=== PATIENT | female | born 1950 | race Caucasian/White ===

== ENCOUNTER 2017-01-04 20:29 | Observation (INO) | payer MEDICARE, OTHER ==
[2017-01-04 20:33] VITALS: BMI 21.4
[2017-01-04 20:56] LABS: MEAN CELL VOLUME 88.5 fl (80.0-105.0); MEAN CORPUSCULAR HEMOGLOBIN 28.5 pg (25.0-35.0); MEAN CORPUSCULAR HGB CONC 32.3 g/dl (31.0-37.0); MEAN PLATELET VOLUME 10.6 fl (7.0-11.0); RED CELL DISTRIBUTION WIDTH 13.9 % (11.5-14.5)
[2017-01-04 21:07] LABS: ALB/GLOB RATIO 1.4 (1.1-1.8); ALKALINE PHOSPHATASE 67 U/L (38-126); ALT/SGPT 30 U/L (7-56); AST/SGOT 27 U/L (14-36); BILIRUBIN,TOTAL 0.5 mg/dL (0.2-1.3); BLOOD UREA NITROGEN 23 mg/dL (7-21); CALCIUM 9.5 mg/dL (8.4-10.5); CARBON DIOXIDE 29 mmol/L (21-33); CHLORIDE 104 mmol/L (98-107); GFR AFRICAN-AMERICAN > 60; GLUCOSE,RANDOM 109 mg/dL (70-110); POTASSIUM 4.1 mmol/L (3.6-5.0); SODIUM 141 mmol/L (132-148); TOTAL PROTEIN 7.6 g/dL (5.8-8.3)
[2017-01-04 21:08] LABS: INR 1.06 (0.93-1.08)
[2017-01-04] MEDS ORDERED: Nitroglycerin 2% Ointment Foilpak UD TOP STA (21:09)
--- NOTE | 2017-01-04 21:11 | ED PDOC ---
Arrival/HPI - General Chief Complaint: Chest Pain Time Seen by Provider: 01/04/17 20:29 Historian: Patient - History of Present Illness Narrative History of Present Illness (Text): 01/04/17 20:45 Aubrie Mcghee is a 66 year old female, whose past medical history includes hypertension on Losartan/Amlodipine, who presents to the ED complaining of chest discomfort. Patient states chest discomfort has been intermittent over the past 3 days. Patient denies shortness of breath, fever, chills, cough, recent trauma/injury, or any other complaints. Patient notes some discomfort with certain movements, although patient is not quite sure. Time/Duration: < week (3 days) Symptom Onset: Gradual Symptom Course: Unchanged Activities at Onset: Light Context: Home Past Medical History - Provider Review Nursing Documentation Reviewed: Yes - Infectious Disease Hx of Infectious Diseases: None - Tetanus Immunization Tetanus Immunization: Unknown - Cardiac Hx Hypertension: Yes - Musculoskeletal/Rheumatological Hx Back Pain: Yes Hx Osteoporosis: Yes - Psychiatric Hx Psychophysiologic Disorder: No Hx Depression: No Hx Emotional Abuse: No Hx Physical Abuse: No Hx Substance Use: No - Surgical History Hx Cholecystectomy: Yes Hx Orthopedic Surgery: Yes (left knee) - Suicidal Assessment Feels Threatened In Home Enviroment: No Family/Social History - Physician Review Nursing Documentation Reviewed: Yes Family/Social History: Unknown Family HX Smoking Status: Never Smoked Hx Alcohol Use: No Hx Substance Use: No Hx Substance Use Treatment: No Allergies/Home Meds Allergies/Adverse Reactions: Allergies No Known Allergies Allergy (Verified 01/04/17 20:33) Home Medications: Home Meds Medication Instructions Recorded Confirmed Alendronate [Fosamax] 70 mg PO TUE 01/04/17 01/04/17 Losartan [Cozaar] 50 mg PO DAILY 01/04/17 01/04/17 amLODIPine [Norvasc] 5 mg PO DAILY 01/04/17 01/04/17 Review of Systems - Physician Review All systems were reviewed & negative as marked: Yes - Review of Systems Constitutional: Normal. absent: Fevers Eyes: Normal ENT: Normal Respiratory: Normal. absent: SOB, Cough Cardiovascular: Chest Pain Gastrointestinal: Normal. absent: Abdominal Pain, Diarrhea, Nausea Genitourinary Female: Normal. absent: Dysuria, Frequency, Hematuria, Urine Output Changes Musculoskeletal: Normal. absent: Back Pain, Neck Pain Skin: Normal. absent: Rash Neurological: Normal. absent: Headache, Dizziness Endocrine: Normal Hemo/Lymphatic: Normal Psychiatric: Normal Physical Exam Vital Signs Reviewed: Yes Vital Signs Temp Pulse Pulse Resp BP BP Pulse Ox 01/04/17 22:59 52 L 16 134/79 97 01/04/17 21:20 51 L 14 126/75 99 01/04/17 20:30 55 L 172/69 H 01/04/17 20:29 97.8 F 55 L 17 172/69 H 99 Temperature: Afebrile Blood Pressure: Hypertensive Pulse: Regular Respiratory Rate: Normal Appearance: Positive for: Well-Appearing, Non-Toxic, Comfortable Pain Distress: None Mental Status: Positive for: Alert and Oriented X 3 - Systems Exam Head: Present: Atraumatic, Normocephalic Pupils: Present: PERRL Extroacular Muscles: Present: EOMI Conjunctiva: Present: Normal Mouth: Present: Moist Mucous Membranes Neck: Present: Normal Range of Motion Respiratory/Chest: Present: Clear to Auscultation, Good Air Exchange. No: Respiratory Distress, Accessory Muscle Use Cardiovascular: Present: Regular Rate and Rhythm, Normal S1, S2. No: Murmurs Abdomen: Present: Normal Bowel Sounds. No: Tenderness, Distention, Peritoneal Signs Back: Present: Normal Inspection Upper Extremity: Present: Normal Inspection. No: Cyanosis, Edema Lower Extremity: Present: Normal Inspection. No: Edema Neurological: Present: GCS=15, CN II-XII Intact, Speech Normal Skin: Present: Warm, Dry, Normal Color. No: Rashes Psychiatric: Present: Alert, Oriented x 3, Normal Insight, Normal Concentration Medical Decision Making ED Course and Treatment: 01/04/17 20:45 Impression: 66 year old female complaining of chest discomfort. Plan: -- EKG -- CXR -- Labs, cardiac enzymes -- Aspirin -- Nitrolgycerin -- Reassess and disposition Prior Visits: Notes and results from previous visits were reviewed. Progress Notes: Reviewed EKG, sinus bradycardia at 52 bpm. T wave changes inferiorly. Unchanged from previous EKG. 01/04/17 22:56 Chest X-ray reviewed, no acute processes. 01/04/17 23:[address] Harper, who is aware and agrees with plan. Accepts pt in to his service. Pt will go to Telemetry observation for chest pain. Requests Dr. Harper on consult. 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 - Lab Interpretations Lab Results: 01/04/17 20:45 01/04/17 20:45 Lab Results 01/04/17 20:45: Sodium 141, Potassium 4.1, Chloride 104, Carbon Dioxide 29, Anion Gap 12, BUN 23 H, Creatinine 0.7, Est GFR ( Amer) > 60, Est GFR ( Non-Af Amer) > 60, Random Glucose 109, Calcium 9.5, Total Bilirubin 0.5, AST 27 , ALT 30, Alkaline Phosphatase 67, Lactate Dehydrogenase 353, Total Creatine Kinase 42, Troponin I < 0.01, Total Protein 7.6, Albumin 4.4, Globulin 3.2, Albumin/Globulin Ratio 1.4 01/04/17 20:45: WBC 6.0, RBC 4.52, Hgb 12.9, Hct 40.0, MCV 88.5, MCH 28.5, MCHC 32.3, RDW 13.9, Plt Count 269, MPV 10.6 01/04/17 20:45: PT 11.6, INR 1.06, APTT 29.0 I have reviewed the lab results: Yes - RAD Interpretation Radiology Orders: 01/04/17 20:44 CHEST PORTABLE [RAD] Stat Communications Equipment Supervisor: ED Physician - EKG Interpretation Interpreted by ED Physician: Yes Type: 12 lead EKG - Medication Orders Current Medication Orders: Discontinued Medications Aspirin (Aspirin) 325 mg PO ONCE STA Stop: 01/04/17 21:17 Last Admin: 01/04/17 21:24 Dose: 325 mg - Scribe Statement The provider has reviewed the documentation as recorded by the Peeweeibnat March All medical record entries made by the Courtney were at my direction and personally dictated by me. I have reviewed the chart and agree that the record accurately reflects my personal performance of the history, physical exam, medical decision making, and the department course for this patient. I have also personally directed, reviewed, and agree with the discharge instructions and disposition. Disposition/Present on Arrival - Present on Arrival Any Indicators Present on Arrival: No History of DVT/PE: No History of Uncontrolled Diabetes: No Urinary Catheter: No History of Decub. Ulcer: No History Surgical Site Infection Following: None - Disposition Have Diagnosis and Disposition been Completed?: Yes Diagnosis: Chest pain Disposition: HOSPITALIZED Disposition Time: 23:20 Patient Plan: Observation Condition: STABLE Discharge Instructions (ExitCare): Chest Pain (ED) Referrals: Sarah Santoro, [Primary Care Provider] - Follow up with primary Forms: [employer] (Uzbek)
[2017-01-04 21:18] LABS: TROPONIN I < 0.01 ng/mL
--- NOTE | 2017-01-05 00:40 | CP.PCM.HP ---
History of Present Illness - History of Present Illness History of Present Illness: Houston Lopez DO PGY1 - Internal Medicine H&P for Dr. Harper CC: Chest pain HPI: 66 yo F with PMH of HTN and prediabetes presents complaining of chest pain. Pain is in the left side of her chest, started about one week ago as a sharp pinching pain then became dull constant ache, radiating to back and shoulder, worse with deep inspiration, no particular remitting factors, started after a day of yardwork and cooking, worst was 8/10 in severity. She has never had this pain before. She denies SOB, dyspnea on exertion, diaphoresis cough, leg pain with activity. She also denies recent weight loss, night sweats, nausea , vomiting, diarrhea, constipation, fever, chills. She came to the hospital because she was worried about the pain because a relative recently from an [place] after experiencing back pain for several days. Since arriving to the ER, her pain has improved dramatically after receiving just Aspirin 325mg. Of note, patient had nuclear stress test in 2013 which was normal with no wall motion abnormalities, with an LVEF 61%. She also had an echocardiogram done with showed good LV function, mildly dilated RA and RV with mild TR, and no pHTN. 12 point ROS was obtained and is negative except as above PMH: HTN, prediabetes Home meds: Losartan 50 daily, Amlodipine 5 daily, alendronate weekly PSH: Cholecystectomy Soc: Denies tobacco, alcohol, or illicits FHx: Mother with angina; Father had DM; Multiple maternal aunts and uncles with TN's and strokes All: NKDA PMD: Dr. Jo Present on Admission - Present on Admission Any Indicators Present on Admission: No Past Patient History - Infectious Disease Hx of Infectious Diseases: None - Tetanus Immunizations Tetanus Immunization: Unknown - Past Social History Smoking Status: Never Smoked - CARDIAC Hx Hypertension: Yes - MUSCULOSKELETAL/RHEUMATOLOGICAL Hx Back Pain: Yes Hx Osteoporosis: Yes - PSYCHIATRIC Hx Psychophysiologic Disorder: No Hx Depression: No Hx Emotional Abuse: No Hx Physical Abuse: No Hx Substance Use: No - SURGICAL HISTORY Hx Cholecystectomy: Yes Hx Orthopedic Surgery: Yes (left knee) Meds Allergies/Adverse Reactions: Allergies Allergy/AdvReac Type Severity Reaction Status Date / Time No Known Allergies Allergy Verified 01/04/17 20:33 Physical Exam - Constitutional Appears: Non-toxic, No Acute Distress - Head Exam Head Exam: ATRAUMATIC, NORMOCEPHALIC - Eye Exam Eye Exam: EOMI, Normal appearance, PERRL. absent: Scleral icterus - ENT Exam ENT Exam: Mucous Membranes Moist - Neck Exam Neck exam: Positive for: Normal Inspection. Negative for: Lymphadenopathy - Respiratory Exam Respiratory Exam: Clear to Auscultation Bilateral, NORMAL BREATHING PATTERN. absent: Rales, Rhonchi, Wheezes - Cardiovascular Exam Cardiovascular Exam: Bradycardia, REGULAR RHYTHM, +S1, +S2. absent: Diastolic murmur, +S4, Systolic Murmur Additional comments: Anterior chest wall tenderness; reproduces the pain she is complaining of - GI/Abdominal Exam GI & Abdominal Exam: Normal Bowel Sounds, Soft. absent: Guarding, Rebound, Rigid, Tenderness - Extremities Exam Extremities exam: Positive for: normal capillary refill, pedal pulses present. Negative for: calf tenderness, pedal edema - Neurological Exam Neurological exam: Alert, CN II-XII Intact, Oriented x3 - Psychiatric Exam Psychiatric exam: Normal Affect, Normal Mood - Skin Skin Exam: Dry, Intact, Normal Color Results - Vital Signs Recent Vital Signs: Last Vital Signs Temp 97.8 F 01/04/17 20:29 Pulse 52 L 01/04/17 22:59 Resp 16 01/04/17 22:59 BP 134/79 01/04/17 22:59 Pulse Ox 97 01/04/17 22:59 - Labs Result Diagrams: 01/04/17 20:45 01/04/17 20:45 Assessment & Plan - Assessment and Plan (Free Text) Assessment: 66 yo F with PMH of HTN and prediabetes presents complaining of left chest pain radiating to back and shoulder; reproducible on exam Plan 1. Chest pain, rule out ACS - Chest pain reproducible on exam; more likely costochondritis 2/2 overuse while preparing for guests for holiday dinner; improved since initial presentation - Elderly female with nonanginal chest pain, intermediate risk for CAD according for Kathy Leonid classification; SHARDA 1 - EKG is unchanged from prior EKG in February 2016; patient had nuclear stress test and echocardiogram which were essentially normal in 2013 - First troponin negative; continue to trend - Ordered echo to rule out wall motion abnormalities - Repeat EKG in AM - Start ASA, Plavix, Statin - Start nitro paste - Acetaminophen for pain - Ordered D-Dimer to rule out PE as etiology of chest pain - Heart healthy diet - Cardiology consulted, appreciate recs 2. H/o HTN - Resume home lostartan 3. Baseline bradycardia - Avoid negative chronotropes, hold home amlodipine - Patient is asymptomatic currently, continue to monitor 4. H/o prediabetes - Patient is euglycemic currently - Ordered HbA1c to check glycemic control GI DVT Ppx - Protonix and Lovenox Patient discussed and reviewed with attending, Dr. Harper
[2017-01-05 01:19] LABS: CHOLESTEROL 156 mg/dL (130-200)
[2017-01-05] MEDS: Nitroglycerin 2% Ointment Foilpak UD TOP SCH ×3 (01:22→13:00)
[2017-01-05] MEDS: Enoxaparin 40 mg Syringe SC SCH ×2 (01:22→09:55)
[2017-01-05] MEDS: Pantoprazole 40 mg EC Tab PO SCH ×2 (01:23→05:57)
[2017-01-05 01:30] LABS: TROPONIN I < 0.01 ng/mL
--- NOTE | 2017-01-05 03:05 | HP ---
HISTORY OF PRESENT ILLNESS: The patient is a 66-year-old female who is being followed by primary care physician in [place], came to the emergency room complaining of chest pain despite taking aspirin. The patient came to the emergency room as a walk-in. The patient's pain scale was described over 09/15. The patient's 13-system review was positive for chest pain according to the ER physician evaluation. The patient complains of chest pain, chest pressure, and chest discomfort increasing for the last 3 days. Denies shortness of breath. Denies nausea, vomiting, diarrhea, or constipation. Denies hemoptysis. CODE STATUS: Full code. LIVING WILL ADVANCE DIRECTIVE: None. ALLERGIES: NONE. The patient is seen in a stretcher #6 in the main emergency room. Height is 5 feet 3 inches. Weight is 121. BMI is 21. HOME MEDICATIONS: 1. Fosamax 70 mg weekly. 2. Norvasc 5 mg daily. 3. Cozaar 50 mg daily. SOCIAL HISTORY: Substance history is negative for substance abuse. Negative for alcohol use. Negative for smoking. MENSTRUAL HISTORY: Postmenopausal. FAMILY HISTORY: Positive for hypertension. PAST MEDICAL AND SURGICAL HISTORY: History of hypertension; history of osteoporosis; history of dyslipidemia; history of cholecystectomy; history of left knee surgery; history of degenerative disk disease; history of syncope, etiology undetermined; history of hypertension; and history of cervical disk disease and cervical radiculopathy. The patient's past medical history is significant for history of stress test done by Dr. Sandoval showing ejection fraction of 61% and normal perfusion study, history of degenerative joint disease of the cervical spine, history of degenerative joint disease of the lumbar spine, history of left ventricular ejection fraction of 60% on the echocardiogram, history of mildly dilated right ventricle, history of thickened aortic valve, history of thickened mitral valve, history of thickened tricuspid valve, history of mild tricuspid regurgitation, history of mildly dilated right atrium and right ventricle, history of arthroscopic surgery of the knee, history of arthritis, history of degenerative joint disease, history of left knee arthroscopic surgery, history of osteoporosis, and history of lumbar disk disease. REVIEW OF SYSTEMS: The patient's 13 system review as dictated above. PHYSICAL EXAMINATION: VITAL SIGNS: T-max 97.8, heart rate 55, 51, and 52, blood pressure 172/69, 126/75, and 134/79, respirations 16 to 14, and O2 sat 97% to 99% in room air. The patient is seen and examined by the ER physician, Dr. Tenorio. HEENT: Head examination; normocephalic and atraumatic. HEENT examination shows pink conjunctivae. Anicteric sclerae. No nystagmus noted. Extraocular movements intact. Dry oral mucosa. GENERAL: The patient is seen in the stretcher #6. The patient is alert, awake, and oriented x3. NECK: No neck rigidity. No audible carotid bruit. CHEST: Symmetrical. LUNGS: Shows no rales, crackles, or wheezing. CARDIOVASCULAR: S1 and S2, regular rhythm. Questionable soft systolic murmur at the left second intercostal space. ABDOMEN: Soft. Positive bowel sounds. Nontender. No guarding. No rigidity. No rebound tenderness and no costovertebral angle tenderness. GENITALIA: Female. RECTAL: Deferred. EXTREMITIES: Shows no clubbing, no cyanosis, and no edema. No calf numbness. No Homans' sign. NEUROLOGIC: The patient is alert, awake, and oriented x3. Cranial nerves II-XII intact. Speech is intact. SKIN: Warm and dry. PSYCHIATRIC: Negative for anxiety or depression. Negative for suicidal or homicidal ideation. Negative for auditory or visual hallucination. DIAGNOSTIC DATA: EKG shows sinus bradycardia, T-wave changes in the inferior leads. Chest x-ray, no acute process. WBC 6.0, hemoglobin and hematocrit 12.9 and 40, and platelet 269. PT/PTT 11.6 and 29. Sodium 141, potassium 4.1, chloride 104, CO2 of 29, anion gap 12, BUN 23, and creatinine 0.7. GFR greater than 60, glucose 109, and calcium 9.5. LFTs are within normal limits. Troponin is 0.01. CPK 42. Chest x-ray shows clear lung tan. EKG shows sinus bradycardia, nonspecific ST changes. The patient was seen in the emergency room by Dr. Tenorio. The patient was advised to be admitted. IMPRESSION: 1. Chest pain. 2. Questionable unstable angina. 3. Sinus bradycardia. 4. Mild prerenal kidney injury. 5. History of hypertension. 6. History of osteoporosis. PLAN: At present, the patient will be admitted to telemetry. The patient has been ordered lipid panel. The patient has been ordered serial cardiac enzymes, serial troponin, D-dimer ordered, erythrocyte sedimentation rate ordered, and lipid panel ordered. Consultation with Cardiology. The patient is started on antiplatelet therapy with aspirin 325 daily. The patient is resumed on his Cozaar 50 mg daily, Ecotrin 81 mg daily, Fosamax 70 mg weekly, Lipitor 80 mg daily, Lovenox 40 mg subcutaneously daily, nitroglycerin paste 1 inch q.6 hours, Plavix 75 mg daily, Protonix 40 mg twice a day, and Tylenol 650 q.6 hours p.r.n. Repeat EKG ordered. Echo with Doppler ordered. Heart healthy diet ordered. Cardiology consultation ordered. At present, the patient's further management will be dependent upon the patient's clinical condition, hemodynamic status, and as per the patient response to therapeutic intervention as per the patient's diagnostic test results and recommendation by all the physician involved in the care of the patient. The patient was explained about the details of her medical condition for further diagnostic therapeutic intervention was explained to the patient at length. All questions concerned and answered. The patient was advised and need for further diagnostic therapeutic intervention, need for further treatment, need for further diagnostic therapeutic intervention was explained to the patient at length and all questions concerned answered, which he acknowledged and understand. Dictated and electronically signed, not read. Benjy Harper MD
[2017-01-05 05:53] LABS: BASO # 0.01 K/mm3 (0.0-2.0); BASO % 0.2 % (0.0-3.0); EOS # 0.2 (0.0-0.7); EOS % 3.5 % (1.5-5.0); GRAN # 2.76 (1.4-6.5); GRAN % 54.4 % (50.0-68.0); HEMATOCRIT 37.8 % (36.0-48.0); LYMPH # 1.8 (1.2-3.4); LYMPH % 34.4 % (22.0-35.0); MEAN CELL VOLUME 88.1 fl (80.0-105.0); MEAN CORPUSCULAR HEMOGLOBIN 28.2 pg (25.0-35.0); MEAN PLATELET VOLUME 10.5 fl (7.0-11.0); MONO # 0.4 (0.1-0.6); MONO % 7.5 % (1.0-6.0); WHITE BLOOD COUNT 5.1 10^3/ul (4.5-11.0)
[2017-01-05 06:14] VITALS: RESP 20
[2017-01-05 06:36] LABS: ALB/GLOB RATIO 1.2 (1.1-1.8); ALKALINE PHOSPHATASE 59 U/L (38-126); ALT/SGPT 33 U/L (7-56); AST/SGOT 32 U/L (14-36); BILIRUBIN,TOTAL 0.6 mg/dL (0.2-1.3); BLOOD UREA NITROGEN 19 mg/dL (7-21); CARBON DIOXIDE 29 mmol/L (21-33); CHLORIDE 108 mmol/L (98-107); GFR AFRICAN-AMERICAN > 60; GLUCOSE,RANDOM 99 mg/dL (70-110); MAGNESIUM 2.1 mg/dL (1.7-2.2); PHOSPHOROUS 3.4 mg/dL (2.5-4.5); POTASSIUM 3.7 mmol/L (3.6-5.0); SODIUM 143 mmol/L (132-148); TOTAL PROTEIN 6.8 g/dL (5.8-8.3)
[2017-01-05 06:46] LABS: TROPONIN I < 0.01 ng/mL
--- NOTE | 2017-01-05 08:15 | RAD ---
HISTORY: chest pain COMPARISON: 04/21/2014 FINDINGS: LUNGS: No active pulmonary disease. PLEURA: No significant pleural effusion identified, no pneumothorax apparent. CARDIOVASCULAR: Normal. OSSEOUS STRUCTURES: No significant abnormalities. VISUALIZED UPPER ABDOMEN: Normal. OTHER FINDINGS: None. IMPRESSION: No active disease.
[2017-01-05 09:44] LABS: TROPONIN I < 0.01 ng/mL
--- NOTE | 2017-01-05 10:31 | CARD ---
APPROVED REPORT EXAM: Two-dimensional and M-mode echocardiogram with Doppler and color Doppler. INDICATION Hypertension/HCVD Chest Pain 2D DIMENSIONS Left Atrium (2D)3.2 (1.6-4.0cm)IVSd1.0 (0.7-1.1cm) LVDd4.3 (3.9-5.9cm)PWd1.3 (0.7-1.1cm) LVDs2.8 (2.5-4.0cm)FS (%) 34.7 % LVEF (%)64.1 (>50%) M-Mode DIMENSIONS Aortic Root2.60 (2.2-3.7cm)Aortic Cusp Exc.1.70 (1.5-2.0cm) Aortic Valve AoV Peak Hujkmwli522.0cm/Jorden Peak GR.6mmHg Mitral Valve MV E Fbwrhchu78.5cm/sMV A Ckdwdxky04.1cm/sE/A ratio0.7 TDI E/Lateral E'0.0E/Medial E'0.0 Tricuspid Valve TR Peak Eryxhiit269xy/sRAP [id number] Peak Gr.21mmHg [id number] LEFT VENTRICLE The left ventricle is normal size. There is normal left ventricular wall thickness. The left ventricular function is normal. The left ventricular ejection fraction is within the normal range. There is normal LV segmental wall motion. Transmitral Doppler flow pattern is Grade I-abnormal relaxation pattern. RIGHT VENTRICLE The right ventricle is normal size. There is normal right ventricular wall thickness. The right ventricular systolic function is normal. ATRIA The left atrium size is normal. The right atrium size is normal. AORTIC VALVE The aortic valve is normal in structure. No aortic regurgitation is present. MITRAL VALVE The mitral valve is normal in structure. There is no mitral valve stenosis. TRICUSPID VALVE There is trace tricuspid regurgitation. PULMONIC VALVE There is trace pulmonic valvular regurgitation. GREAT VESSELS The aortic root is normal in size. The IVC is normal in size and collapses >50% with inspiration. PERICARDIAL EFFUSION There is no pericardial effusion. <Conclusion> The left ventricle is normal size. There is normal left ventricular wall thickness. The left ventricular function is normal. The left ventricular ejection fraction is within the normal range. There is normal LV segmental wall motion. Transmitral Doppler flow pattern is Grade I-abnormal relaxation pattern.
--- NOTE | 2017-01-05 10:33 | CARD ---
APPROVED REPORT EKG Measurement Heart [id number] <Conclusion> Sinus bradycardia Possible Left atrial enlargement Incomplete right bundle branch block T wave abnormality, consider inferior ischemia Abnormal ECG
--- NOTE | 2017-01-05 10:53 | CARD ---
APPROVED REPORT EKG Measurement Heart [id number] <Conclusion> Sinus bradycardia T wave abnormality, consider inferior ischemia Abnormal ECG
--- NOTE | 2017-01-05 11:54 | CP.PCM.DIS ---
Provider - Provider Date of Admission: 01/04/17 23:15 Attending physician: Benjy Harper MD Primary care physician: Dr. Flores [facility] Course - Lab Results Lab Results: Most Recent Lab Values WBC 5.1 10^3/ul (4.5-11.0) 01/05/17 05:20 RBC 4.29 10^6/uL (3.5-6.1) 01/05/17 05:20 Hgb 12.1 g/dL (12.0-16.0) 01/05/17 05:20 Hct 37.8 % (36.0-48.0) 01/05/17 05:20 MCV 88.1 fl (80.0-105.0) 01/05/17 05:20 MCH 28.2 pg (25.0-35.0) 01/05/17 05:20 MCHC 32.0 g/dl (31.0-37.0) 01/05/17 05:20 RDW 14.0 % (11.5-14.5) 01/05/17 05:20 Plt Count 246 10^3/uL (120.0-450.0) 01/05/17 05:20 MPV 10.5 fl (7.0-11.0) 01/05/17 05:20 Gran % 54.4 % (50.0-68.0) 01/05/17 05:20 Lymph % (Auto) 34.4 % (22.0-35.0) 01/05/17 05:20 [place] % (Auto) 7.5 % (1.0-6.0) H 01/05/17 05:20 Eos % (Auto) 3.5 % (1.5-5.0) 01/05/17 05:20 Baso % (Auto) 0.2 % (0.0-3.0) 01/05/17 05:20 Gran # 2.76 (1.4-6.5) 01/05/17 05:20 Lymph # 1.8 (1.2-3.4) 01/05/17 05:20 [place] # 0.4 (0.1-0.6) 01/05/17 05:20 Eos # 0.2 (0.0-0.7) 01/05/17 05:20 Baso # 0.01 K/mm3 (0.0-2.0) 01/05/17 05:20 ESR 10 mm/hr (0.0-20.0) 01/05/17 00:45 PT 11.6 SECONDS (9.4-12.5) 01/04/17 20:45 INR 1.06 (0.93-1.08) 01/04/17 20:45 APTT 29.0 Seconds (25.1-36.5) 01/04/17 20:45 D-Dimer, Quantitative < 200 ng/mL (0-243) 01/05/17 00:45 Sodium 143 mmol/L (132-148) 01/05/17 05:20 Potassium 3.7 mmol/L (3.6-5.0) 01/05/17 05:20 Chloride 108 mmol/L (98-107) H 01/05/17 05:20 Carbon Dioxide 29 mmol/L (21-33) 01/05/17 05:20 Anion Gap 9 (10-20) L 01/05/17 05:20 BUN 19 mg/dL (7-21) 01/05/17 05:20 Creatinine 0.7 mg/dl (0.7-1.2) 01/05/17 05:20 Est GFR ( Amer) > 60 01/05/17 05:20 Est GFR (Non-Af Amer) > 60 01/05/17 05:20 Random Glucose 99 mg/dL (70-110) 01/05/17 05:20 Calcium 9.0 mg/dL (8.4-10.5) 01/05/17 05:20 Phosphorus 3.4 mg/dL (2.5-4.5) 01/05/17 05:20 Magnesium 2.1 mg/dL (1.7-2.2) 01/05/17 05:20 Total Bilirubin 0.6 mg/dL (0.2-1.3) 01/05/17 05:20 AST 32 U/L (14-36) 01/05/17 05:20 ALT 33 U/L (7-56) 01/05/17 05:20 Alkaline Phosphatase 59 U/L (38-126) 01/05/17 05:20 Lactate Dehydrogenase 353 U/L (333-699) 01/04/17 20:45 Total Creatine Kinase 34 U/L (35-230) L 01/05/17 09:05 Troponin I < 0.01 ng/mL 01/05/17 09:05 Total Protein 6.8 g/dL (5.8-8.3) 01/05/17 05:20 Albumin 3.7 g/dL (3.0-4.8) 01/05/17 05:20 Globulin 3.1 gm/dL 01/05/17 05:20 Albumin/Globulin Ratio 1.2 (1.1-1.8) 01/05/17 05:20 Triglycerides 192 mg/dL (35-160) H 01/05/17 00:45 Cholesterol 156 mg/dL (130-200) 01/05/17 00:45 LDL Cholesterol Direct 99 mg/dL (0-129) 01/05/17 00:45 HDL Cholesterol 34 mg/dL (29-60) 01/05/17 00:45 TSH 3rd Generation 1.87 mIU/mL (0.46-4.68) 01/04/17 20:45 Discharge Exam - Head Exam Head Exam: ATRAUMATIC, NORMOCEPHALIC Discharge Plan - Discharge Medications Prescriptions: Acetaminophen [Tylenol 325mg tab] 650 mg PO Q6H PRN #60 tab PRN Reason: TEMP>=99.5F &/OR HEADACHE Aspirin [Ecotrin] 81 mg PO DAILY #30 tabec Atorvastatin [Lipitor] 80 mg PO DAILY #30 tab Pantoprazole [Protonix EC Tab] 40 mg PO 0600,1600 #30 ect - Follow Up Plan Condition: STABLE Disposition: HOME/ ROUTINE Instructions: Chest Pain (ED) Additional Instructions: MAY DISCHARGE HOME AFTER CLEARED BY CARDIOLOGY SCHEDULE OUTPATIENT STRESS TEST WITH FOLLOW UP WITHIN 1 WEEK DISCHARGE MEDS PER NEW SCRIPTS AND AMBULATORY ORDERS. Referrals: Benjy Harper MD [Staff Provider] - 1 Week (MAY DISCHARGE HOME AFTER CLEARED BY CARDIOLOGY SCHEDULE OUTPATIENT STRESS TEST WITH FOLLOW UP WITHIN 1 WEEK DISCHARGE MEDS PER NEW SCRIPTS AND AMBULATORY ORDERS.) Franklyn Sandoval MD [Staff Provider] -
[2017-01-05 12:05] VITALS: PULSE 54; TEMP 98.1
--- NOTE | 2017-01-05 12:19 | CP.PCM.DIS ---
Provider - Provider Date of Admission: 01/04/17 23:15 Attending physician: Benjy Harper MD Primary care physician: Dr. Flores Outpt behavioral therapist Dr Parker Consults: Dr Sandoval, cardiology Time Spent in preparation of Discharge (in minutes): 50 Diagnosis - Discharge Diagnosis (1) Chest pain Status: Acute (2) Musculoskeletal pain Status: Acute Hospital Course - Lab Results Lab Results: Most Recent Lab Values WBC 5.1 10^3/ul (4.5-11.0) 01/05/17 05:20 RBC 4.29 10^6/uL (3.5-6.1) 01/05/17 05:20 Hgb 12.1 g/dL (12.0-16.0) 01/05/17 05:20 Hct 37.8 % (36.0-48.0) 01/05/17 05:20 MCV 88.1 fl (80.0-105.0) 01/05/17 05:20 MCH 28.2 pg (25.0-35.0) 01/05/17 05:20 MCHC 32.0 g/dl (31.0-37.0) 01/05/17 05:20 RDW 14.0 % (11.5-14.5) 01/05/17 05:20 Plt Count 246 10^3/uL (120.0-450.0) 01/05/17 05:20 MPV 10.5 fl (7.0-11.0) 01/05/17 05:20 Gran % 54.4 % (50.0-68.0) 01/05/17 05:20 Lymph % (Auto) 34.4 % (22.0-35.0) 01/05/17 05:20 [place] % (Auto) 7.5 % (1.0-6.0) H 01/05/17 05:20 Eos % (Auto) 3.5 % (1.5-5.0) 01/05/17 05:20 Baso % (Auto) 0.2 % (0.0-3.0) 01/05/17 05:20 Gran # 2.76 (1.4-6.5) 01/05/17 05:20 Lymph # 1.8 (1.2-3.4) 01/05/17 05:20 [place] # 0.4 (0.1-0.6) 01/05/17 05:20 Eos # 0.2 (0.0-0.7) 01/05/17 05:20 Baso # 0.01 K/mm3 (0.0-2.0) 01/05/17 05:20 ESR 10 mm/hr (0.0-20.0) 01/05/17 00:45 PT 11.6 SECONDS (9.4-12.5) 01/04/17 20:45 INR 1.06 (0.93-1.08) 01/04/17 20:45 APTT 29.0 Seconds (25.1-36.5) 01/04/17 20:45 D-Dimer, Quantitative < 200 ng/mL (0-243) 01/05/17 00:45 Sodium 143 mmol/L (132-148) 01/05/17 05:20 Potassium 3.7 mmol/L (3.6-5.0) 01/05/17 05:20 Chloride 108 mmol/L (98-107) H 01/05/17 05:20 Carbon Dioxide 29 mmol/L (21-33) 01/05/17 05:20 Anion Gap 9 (10-20) L 01/05/17 05:20 BUN 19 mg/dL (7-21) 01/05/17 05:20 Creatinine 0.7 mg/dl (0.7-1.2) 01/05/17 05:20 Est GFR ( Amer) > 60 01/05/17 05:20 Est GFR (Non-Af Amer) > 60 01/05/17 05:20 Random Glucose 99 mg/dL (70-110) 01/05/17 05:20 Calcium 9.0 mg/dL (8.4-10.5) 01/05/17 05:20 Phosphorus 3.4 mg/dL (2.5-4.5) 01/05/17 05:20 Magnesium 2.1 mg/dL (1.7-2.2) 01/05/17 05:20 Total Bilirubin 0.6 mg/dL (0.2-1.3) 01/05/17 05:20 AST 32 U/L (14-36) 01/05/17 05:20 ALT 33 U/L (7-56) 01/05/17 05:20 Alkaline Phosphatase 59 U/L (38-126) 01/05/17 05:20 Lactate Dehydrogenase 353 U/L (333-699) 01/04/17 20:45 Total Creatine Kinase 34 U/L (35-230) L 01/05/17 09:05 Troponin I < 0.01 ng/mL 01/05/17 09:05 Total Protein 6.8 g/dL (5.8-8.3) 01/05/17 05:20 Albumin 3.7 g/dL (3.0-4.8) 01/05/17 05:20 Globulin 3.1 gm/dL 01/05/17 05:20 Albumin/Globulin Ratio 1.2 (1.1-1.8) 01/05/17 05:20 Triglycerides 192 mg/dL (35-160) H 01/05/17 00:45 Cholesterol 156 mg/dL (130-200) 01/05/17 00:45 LDL Cholesterol Direct 99 mg/dL (0-129) 01/05/17 00:45 HDL Cholesterol 34 mg/dL (29-60) 01/05/17 00:45 TSH 3rd Generation 1.87 mIU/mL (0.46-4.68) 01/04/17 20:45 - Hospital Course Hospital Course: Aubrie Mcghee is a 66 year old female, whose past medical history includes prediabetes and hypertension on Losartan/Amlodipine, who presents to the ED complaining of chest discomfort. Chest discomfort started as she worked hard all day long cooking Thanksgiving meal. It started as dull, mild, intermittent, radiating to L back. The pain progressively getting worse till last night with decreased appeptite, which prompted the pt to the ED. She Denies diaphoreiss, N/ V, numbness, SOB. During the hospital stay, here CBC was normal. D-dimer negative, BMP within normal limit, and CPK wnl. Cholesterol 156, LDL 99, HDL 34. TSH gareth. trops neg x 4. EKG showed incomplete RBBB and TWI III and AVF. Telemetry showed sinus at 50s at night with the lowest at 45, but pt has no dizziness, SOB, CP, N/V or other symptoms. Echocardiogram showed normal LV zise , wall thickness, EF, wall motion, with grade 1 relaxation. Her VSS and cardiology cleared. Pt is to visit the behavioral therapist office within 1 week for outpatient stress test. Medications added: ASA, protonix, lipitor 80. Discharge Exam - Head Exam Head Exam: ATRAUMATIC, NORMOCEPHALIC - Eye Exam Eye Exam: EOMI, Normal appearance, PERRL. absent: Scleral icterus Pupil Exam: NORMAL ACCOMODATION - ENT Exam ENT Exam: Mucous Membranes Moist - Neck Exam Additional comments: supple - Respiratory Exam Respiratory Exam: NORMAL BREATHING PATTERN, UNREMARKABLE - Cardiovascular Exam Cardiovascular Exam: REGULAR RHYTHM, +S1, +S2 - GI/Abdominal Exam GI & Abdominal Exam: Normal Bowel Sounds, Unremarkable. absent: Distended, Firm , Guarding - Extremities Exam Extremities exam: pedal pulses present Additional comments: no calf tenderness - Back Exam Back exam: absent: CVA tenderness (L), CVA tenderness (R) - Neurological Exam Neurological exam: Alert, Oriented x3 - Psychiatric Exam Psychiatric exam: Normal Affect, Normal Mood - Skin Skin Exam: Dry, Warm Discharge Plan - Discharge Medications Prescriptions: Acetaminophen [Tylenol 325mg tab] 650 mg PO Q6H PRN #60 tab PRN Reason: TEMP>=99.5F &/OR HEADACHE Aspirin [Ecotrin] 81 mg PO DAILY #30 tabec Atorvastatin [Lipitor] 80 mg PO DAILY #30 tab Pantoprazole [Protonix EC Tab] 40 mg PO 0600,1600 #30 ect - Follow Up Plan Condition: STABLE Disposition: HOME/ ROUTINE Instructions: Chest Pain (ED) Additional Instructions: MAY DISCHARGE HOME AFTER CLEARED BY CARDIOLOGY SCHEDULE OUTPATIENT STRESS TEST WITH FOLLOW UP WITHIN 1 WEEK DISCHARGE MEDS PER NEW SCRIPTS AND AMBULATORY ORDERS. Referrals: Benjy Harper MD [Staff Provider] - 1 Week (MAY DISCHARGE HOME AFTER CLEARED BY CARDIOLOGY SCHEDULE OUTPATIENT STRESS TEST WITH FOLLOW UP WITHIN 1 WEEK DISCHARGE MEDS PER NEW SCRIPTS AND AMBULATORY ORDERS.) Franklyn Sandoval MD [Staff Provider] -
[2017-01-05 12:25] VITALS: O2SAT 98
[2017-01-05 13:00] VITALS: BP 166/84
--- NOTE | 2017-01-05 17:17 | CON ---
DATE: 01/05/2017 HISTORY OF PRESENT ILLNESS: The patient is a 66-year-old woman with no previous cardiac history, who presents with sharp intermittent chest discomfort. PAST MEDICAL HISTORY: The patient's past medical history includes hypertension and hypercholesterolemia. No previous myocardial infarction in the past. SOCIAL HISTORY: The patient denies smoking. REVIEW OF SYSTEMS: 14-point review of systems was reviewed in detail. No diabetes mellitus. No previous myocardial infarction. Negative angina. Negative dyspnea. PHYSICAL EXAMINATION: VITAL SIGNS: Blood pressure varies from 141 to 172 systolic, heart rate is in the 50s. NECK: Negative JVD. LUNGS: Without rales. HEART: S1 and S2. EXTREMITIES: Without edema. LABORATORY DATA: Includes hemoglobin which is 12.1. Chemistries, troponins are negative x4, BUN and creatinine unremarkable. EKG shows nonspecific ST-T changes. IMPRESSION: 1. Atypical chest pain. 2. No evidence for acute coronary syndrome. 3. Hypertension. 4. Hypercholesterolemia. Given these findings, we will discontinue telemetry today. From a cardiac perspective, the patient can be discharged. However, given her multiple cardiac risk factors, we will arrange for an outpatient stress test. Franklyn Sandoval MD
== END 2017-01-05 15:28 | disposition home or self-care (01) ==
LOC: ED 20:29 → ERH 23:15 → 3RSO 01-05 00:39
PROVIDERS: ADMIT Internal Medicine; ATTEND Internal Medicine
DX: R07.89 Other chest pain (principal); M79.1 Myalgia; M81.0 Age-related osteoporosis without current pathological fracture; E78.00 Pure hypercholesterolemia, unspecified; I10 Essential (primary) hypertension; R73.03 Prediabetes; R00.1 Bradycardia, unspecified; Z79.83 Long term (current) use of bisphosphonates; Z90.49 Acquired absence of other specified parts of digestive tract
CPT/HCPCS: 36415; 71010; 80053; 80061; 82550; 83036; 83615; 83735; 84100; 84443; 84484; 85025; 85027; 85378; 85610; 85651; 85730; 93005; 93306; 99285; G0378; J1650

== ENCOUNTER 2017-12-12 11:00 | Emergency (ER) | payer MEDICARE ==
--- NOTE | 2017-12-12 11:16 | ED PDOC ---
Arrival/HPI - General Time Seen by Provider: 12/12/17 11:08 Historian: Patient - History of Present Illness Narrative History of Present Illness (Text): 12/12/17 11:32 67 year old female, whose past medical history includes hypertension, presents to the emergency department with left calf pain. Patient says she has pain in her left calf that feels like a "cramp/knot." Patient notes she went to her PMD for the presenting complaint, he prescribed dopplers, however the wait was too long, prompting her visit to the emergency department for further evaluation. She reports that it feels swollen compared to the R. She notes she took baby aspirin to alleviate the pain and it improved her symptoms. Patient denies any trauma to the area, fevers, chills, headache, chest pain, shortness of breath, dyspnea on exertion, cough, abdominal pain, vomiting, diarrhea, back pain, neck pain, or any other complaint. PMD: Dr. Flores 12/12/17 15:33 Time/Duration: Prior to Arrival Symptom Course: Unchanged Activities at Onset: Light Context: Home Past Medical History - Provider Review Nursing Documentation Reviewed: Yes - Infectious Disease Hx of Infectious Diseases: None - Tetanus Immunization Tetanus Immunization: Unknown - Cardiac Hx Hypertension: Yes - Pulmonary Hx Respiratory Disorders: No - Neurological Hx Neurological Disorder: No - HEENT Hx HEENT Disorder: Yes (Reading glasses) - Renal Hx Renal Disorder: No - Endocrine/Metabolic Hx Endocrine Disorders: Yes Hx Diabetes Mellitus Type 2: Yes (Pre-diabetic) - Hematological/Oncological Hx Blood Disorders: No - Integumentary Hx Dermatological Disorder: No - Musculoskeletal/Rheumatological Hx Musculoskeletal Disorders: Yes Hx Back Pain: Yes Hx Falls: No Hx Osteoporosis: Yes Hx Unsteady Gait: No - Gastrointestinal Hx Gastrointestinal Disorders: No - Genitourinary/Gynecological Hx Genitourinary Disorders: No - Psychiatric Hx Psychophysiologic Disorder: No Hx Substance Use: No - Surgical History Hx Cholecystectomy: Yes Hx Orthopedic Surgery: Yes (left knee Arthroscopy) - Suicidal Assessment Feels Threatened In Home Enviroment: No Family/Social History - Physician Review Nursing Documentation Reviewed: Yes Family/Social History: Unknown Family HX Smoking Status: Never Smoked Hx Alcohol Use: No Hx Substance Use: No Hx Substance Use Treatment: No Allergies/Home Meds Allergies/Adverse Reactions: Allergies Estrogens Allergy (Verified 12/12/17 11:31) RASH Home Medications: Home Meds Medication Instructions Recorded Confirmed RX: Alendronate [Fosamax] 70 mg PO TUE 01/04/17 12/12/17 RX: Losartan [Cozaar] 50 mg PO DAILY 01/04/17 12/12/17 RX: amLODIPine [Norvasc] 5 mg PO DAILY 01/04/17 12/12/17 Review of Systems - Review of Systems Constitutional: absent: Fevers Eyes: absent: Vision Changes Respiratory: absent: SOB, Cough, Sputum, Wheezing Cardiovascular: Calf Pain. absent: Chest Pain, Palpitations, Edema, VALLE[place], Orthopnea, Syncope Gastrointestinal: absent: Abdominal Pain, Constipation, Diarrhea, Nausea, Vomiting Genitourinary Female: absent: Dysuria, Hematuria Musculoskeletal: Other (left calf pain). absent: Back Pain, Neck Pain Skin: absent: Rash Neurological: absent: Headache, Gait Changes Endocrine: absent: Diaphoresis Psychiatric: absent: Anxiety, Depression Physical Exam Vital Signs Reviewed: Yes Temperature: Afebrile Blood Pressure: Hypertensive Pulse: Regular Respiratory Rate: Normal Appearance: Positive for: Well-Appearing, Non-Toxic, Comfortable Pain Distress: None Mental Status: Positive for: Alert and Oriented X 3 - Systems Exam Head: Present: Atraumatic, Normocephalic Pupils: Present: PERRL Extroacular Muscles: Present: EOMI Conjunctiva: Present: Normal Mouth: Present: Moist Mucous Membranes Neck: Present: Normal Range of Motion Respiratory/Chest: Present: Clear to Auscultation, Good Air Exchange. No: Respiratory Distress, Accessory Muscle Use Cardiovascular: Present: Regular Rate and Rhythm, Normal S1, S2. No: Murmurs Abdomen: No: Tenderness, Distention, Peritoneal Signs Back: Present: Normal Inspection Upper Extremity: Present: Normal Inspection. No: Cyanosis, Edema Lower Extremity: Present: CALF TENDERNESS, NORMAL PULSES, Normal ROM, Neurovascularly Intact, Capillary Refill < 2 s. No: Edema, Sridhar's Sign, Swelling, Deformity Neurological: Present: GCS=15, CN II-XII Intact, Speech Normal, Gait Normal Skin: Present: Warm, Dry, Normal Color. No: Rashes Psychiatric: Present: Alert, Oriented x 3, Normal Insight, Normal Concentration Medical Decision Making ED Course and Treatment: 12/12/17 11:32 Impression: 67 year old female who presents to the Emergency department with complaints of left lower leg pain. Normal ROM. Neurologically intact. Steady gait. Negative thompsons and no history of trauma. Describes the pain as a cramp. Plan: -- EKG -- Labs -- Cardiac Enzymes -- Toradol -- US of left Lower extremity -- Reassess and disposition Prior Visits: Notes and results from previous visits were reviewed. Progress Notes: 12/12/17 12:08 EKG: Ordered, reviewed, and independently interpreted the EKG. Time Interpreted: 12:08 Rate: 53 BPM Rhythm: Sinus Bradycardia Interpretation:T-wave inversions at III Avf v3 Comparison: unchanged from prior EKG on 01/04/2017. 12/12/17 12:46 EKG unchanged. Trop x 1 negative. BNP negative. Cxray negative 12/12/17 12:53 Chest X-ray reviewed, shows: FINDINGS: LUNGS:No active pulmonary disease. PLEURA:No significant pleural effusion identified, no pneumothorax apparent. CARDIOVASCULAR:Aortic calcification and tortuosity.Mild cardiomegaly no pulmonary vascular congestion. OSSEOUS STRUCTURES:No significant abnormalities. VISUALIZED UPPER ABDOMEN:Normal. OTHER FINDINGS:None. IMPRESSION: No active disease. 12/12/17 14:49 U/s negative for dvt - Lab Interpretations I have reviewed the lab results: Yes - RAD Interpretation Dictaphone Technician: Radiologist - EKG Interpretation Interpreted by ED Physician: Yes Type: 12 lead EKG - Scribe Statement The provider has reviewed the documentation as recorded by the Scribe Selam Saha Provider Scribe Attestation: All medical record entries made by the Scribe were at my direction and personally dictated by me. I have reviewed the chart and agree that the record accurately reflects my personal performance of the history, physical exam, medical decision making, and the department course for this patient. I have also personally directed, reviewed, and agree with the discharge instructions and disposition. Disposition/Present on Arrival - Present on Arrival Any Indicators Present on Arrival: No History of DVT/PE: No History of Uncontrolled Diabetes: No Urinary Catheter: No History Surgical Site Infection Following: None - Disposition Have Diagnosis and Disposition been Completed?: Yes Diagnosis: Muscle cramps, Cramp in lower leg Disposition: HOME/ ROUTINE Disposition Time: 14:50 Patient Plan: Discharge Patient Problems: Current Active Problems Problem Status Onset Cramp in lower leg Acute Muscle cramps Acute Condition: GOOD Discharge Instructions (ExitCare): Muscle Spasms (DC) Additional Instructions: Follow-up with PMD within 2 days. Return to ED if condition worsens. Motrin for pain. Referrals: Beny Flores [Primary Care Provider] - Follow up with primary
[2017-12-12 11:30] VITALS: BMI 21.2
[2017-12-12 11:39] VITALS: RESP 16
[2017-12-12 12:23] LABS: BASO # 0.01 K/mm3 (0.0-2.0); BASO % 0.2 % (0.0-3.0); EOS % 0.8 % (1.5-5.0); GRAN # 2.98 (1.4-6.5); GRAN % 60.5 % (50.0-68.0); HEMOGLOBIN 13.1 g/dL (12.0-16.0); LYMPH # 1.6 (1.2-3.4); MEAN CELL VOLUME 87.7 fl (80.0-105.0); MEAN CORPUSCULAR HEMOGLOBIN 28.2 pg (25.0-35.0); MEAN CORPUSCULAR HGB CONC 32.2 g/dl (31.0-37.0); MEAN PLATELET VOLUME 10.9 fl (7.0-11.0); MONO # 0.3 (0.1-0.6); MONO % 6.5 % (1.0-6.0); RBC 4.64 10^6/uL (3.5-6.1); WHITE BLOOD COUNT 4.9 10^3/uL (4.5-11.0)
[2017-12-12 12:24] LABS: ALB/GLOB RATIO 1.2 (1.1-1.8); ALBUMIN 4.4 g/dL (3.0-4.8); ALT/SGPT 27 U/L (7-56); AST/SGOT 28 U/L (14-36); BLOOD UREA NITROGEN 13 mg/dL (7-21); GFR NON-AFRICAN AMERICAN > 60
--- NOTE | 2017-12-12 12:27 | RAD ---
Date of service: 12/12/2017 HISTORY: Left leg pain COMPARISON: 01/04/2017 FINDINGS: LUNGS: No active pulmonary disease. PLEURA: No significant pleural effusion identified, no pneumothorax apparent. CARDIOVASCULAR: Aortic calcification and tortuosity Mild cardiomegaly no pulmonary vascular congestion. OSSEOUS STRUCTURES: No significant abnormalities. VISUALIZED UPPER ABDOMEN: Normal. OTHER FINDINGS: None. IMPRESSION: No active disease.
[2017-12-12 12:35] LABS: B-TYPE NATRIURETIC PEPTIDE 169 pg/mL (0-450); TROPONIN I < 0.01 ng/mL
[2017-12-12 15:35] VITALS: PULSE 61; O2SAT 99
[2017-12-12 15:39] VITALS: BP 176/67; TEMP 97.6
--- NOTE | 2017-12-12 19:31 | US ---
PROCEDURE: Left lower extremity venous US HISTORY: Leg pain and swelling. Evaluate for DVT. PHYSICIAN(S): Franklyn Ortiz MD. TECHNIQUE: Duplex sonography and color-flow Doppler with graded compression were used to evaluate the deep venous system of the left lower extremity. FINDINGS: The visualized deep venous system of the left lower extremity is sonographically normal and compressible. Normal wave forms and augmentation are seen. There is no sonographic evidence for deep venous thrombosis in the visualized segments of the left lower extremity. IMPRESSION: 1. No sonographic evidence for deep venous thrombosis in the visualized segments of the left lower extremity.
--- NOTE | 2017-12-12 19:48 | CARD ---
APPROVED REPORT Date of service: 12/12/2017 EKG Measurement Heart [id number] <Conclusion> Poor data quality, interpretation may be adversely affected Sinus bradycardia T wave abnormality, consider inferior ischemia Abnormal ECG
== END 2017-12-12 15:36 | disposition home or self-care (01) ==
LOC: ED 11:00
DX: R25.2 Cramp and spasm (principal); M79.662 Pain in left lower leg; E11.9 Type 2 diabetes mellitus without complications; I10 Essential (primary) hypertension
CPT/HCPCS: 71045; 80053; 83880; 84484; 85025; 93005; 93971; 96374; 99283; J1885

== ENCOUNTER 2018-05-14 10:18 | Outpatient (CLI) | payer MEDICARE | END 2018-05-14 10:19 | disposition home or self-care (01) | LOC: RAD 10:18 ==

== ENCOUNTER 2018-05-18 10:52 | Outpatient (CLI) | payer MEDICARE | END 2018-05-18 10:53 | disposition home or self-care (01) | LOC: RAD 10:52 ==